=== PATIENT | male | born 1965 | race Caucasian/White ===

== ENCOUNTER 2017-06-26 06:45 | Day surgery (SDC) | payer BC ==
[2017-06-26] MEDS ORDERED: LIDOCAINE 2% MDV (20MG/ML) 20ML VIAL IV ONE (06:46)
[2017-06-26] MEDS ORDERED: PROPOFOL 10 MG/ML VIAL IV ONE (06:46)
[2017-06-26] MEDS ORDERED: MIDAZOLAM HCL 2MG/2ML VIAL IV ONE (06:46)
--- NOTE | 2017-06-29 09:40 | Operative Note ---
DATE OF SURGERY: 06/26/2017 SURGEON: Stephani Moore MD OPERATION: COLONOSCOPY. INDICATIONS: This is a 52-year-old male with history of average risk for colorectal cancer who presented for screening colonoscopy. POSTOPERATIVE DIAGNOSES: 1. Left-sided colonic diverticulosis. 2. Otherwise normal colon. ANESTHESIA: Sedation is per Anesthesia. Pulse oximetry was monitored throughout the procedure to maintain O2 saturation of 90% or greater. Supplemental oxygen was administered via nasal cannula. Cardiac and vital signs were monitored throughout the duration of the procedure, and they were stable. The procedure of colonoscopy and risks and alternatives of the procedure, including the risk of bleeding and perforation, among others, were explained to the patient who voiced understanding and agreed to have the procedure done. Physical examination was performed, and the patient was found stable for sedation. PROCEDURE: The patient was placed in the left lateral position. Sedation was initiated. A digital rectal exam was performed and showed some mild external hemorrhoids with no palpable rectal masses. An Olympus PCF-180AL colonoscope was then inserted into the rectum under direct visualization. It was advanced to the cecum without difficulty. The ileocecal valve and appendiceal orifice were identified and photographed. The colonic mucosa was carefully examined upon introduction of the colonoscope. There were scattered diverticula noted in the sigmoid and descending colon. There were no other lesions noted. The colonoscope was then withdrawn while carefully examining the colonic mucosal surfaces. No other lesions were noted. In the rectum, retroflexion was performed and grade 1 internal hemorrhoids were noted. The colonoscope was then withdrawn and the procedure was terminated. Of note is that the terminal ileal mucosa was intubated and inspected for about 10 cm and it appeared normal. He remained with stable vital signs and was transferred to the recovery room. RECOMMENDATIONS: 1. The patient should be on a high-fiber diet. 2. The patient is to have a repeat colonoscopy for screening in 10 years. Thank you for allowing me to participate in the care of your patient. CC: DO DEMARIO Damian
== END 2017-06-26 09:10 | disposition home or self-care (01) ==
LOC: HOP 06:45
PROVIDERS: ATTEND Internal Medicine Gastroenterology
DX: Z12.11 Encounter for screening for malignant neoplasm of colon (principal); K57.30 Diverticulosis of large intestine without perforation or abscess without bleeding; E78.00 Pure hypercholesterolemia, unspecified; J45.909 Unspecified asthma, uncomplicated
CPT/HCPCS: 00811; G0121

== ENCOUNTER 2019-01-08 10:46 | Emergency (ER) | payer BC ==
[2019-01-08] MEDS ORDERED: 0.9 % SODIUM CHLORIDE 1,000 ML BAG IV ONE ×2 (11:27→12:38)
[2019-01-08] MEDS ORDERED: ONDANSETRON HCL IV 4 MG/2 ML VIAL IVP ONE (11:28)
[2019-01-08 12:00] LABS: ABSOLUTE NEUTROPHIL COUNT 4.84; BASO % 0.2 % (0-6); GRAN % 79.3 % (47-80); HEMOGLOBIN 15.7 gm/dl (14.0-18.0); LYMPH % 9.8 % (16-45); MEAN CELL VOLUME 89.7 fl (81-97); MEAN CORPUSCULAR HGB CONC 33.4 g/dl (32-36); MEAN PLATELET VOLUME 9.8 fl (7.4-10.4); MONO % 10.7 % (0-9); PLATELET COUNT 200 K/uL (130-400); RED BLOOD COUNT 5.24 M/uL (4.40-5.70); RED CELL DISTRIBUTION WIDTH 13.9 % (11.5-14.5); WHITE BLOOD COUNT W/O DIFF 6.1 K/uL (4.2-12.2)
[2019-01-08 12:09] LABS: BLOOD UREA NITROGEN 16 mg/dL (6-20); CREATININE 0.8 mg/dL (0.7-1.2); EST GLOMERULAR FILTRATION RATE > 60 mL/min
[2019-01-08 12:10] LABS: TOTAL PROTEIN 7.7 g/dL (6.6-8.7)
[2019-01-08 12:12] LABS: GLUCOSE,RANDOM 133 mg/dL (74-109)
[2019-01-08 12:14] LABS: ALB/GLOB RATIO 1.3 (1.1-1.8); ALBUMIN 4.3 g/dL (4.0-5.0); ALT/SGPT 52 U/L (<41); AST/SGOT 35 U/L (10.0-50.0)
[2019-01-08 12:15] LABS: ALKALINE PHOSPHATASE 50 U/L (40-129)
[2019-01-08 12:16] LABS: INFLUENZA A NEGATIVE (NEGATIVE); INFLUENZA B NEGATIVE (NEGATIVE)
--- NOTE | 2019-01-08 12:22 | CT SCAN REPORT ---
EXAMINATION: CT Abdomen and Pelvis without IV Contrast EXAM DATE: 01/08/2019 12:01 PM TECHNIQUE: Standard protocol CT imaging of the abdomen and pelvis was performed without intravenous c ontrast. INDICATION: r flank pain COMPARISON: 2010 CT scan. ENCOUNTER: Not applicable CT ABDOMEN AND PELVIS FINDINGS: Lung Bases: Included extent of the lung bases are clear. Hepatobiliary: Mild hepatic steatosis. Normal gallbladder. Pancreas: The pancreas is normal. Spleen: The spleen is not enlarged. Adrenals: The adrenal glands are normal. Kidneys, Ureters, & Bladder: 3 mm obstructing calculus within the proximal right ureter with mild ass ociated upstream hydronephrosis. Multiple additional small nonobstructing renal calculi bilaterally. Normal bladder. Gastrointestinal: The stomach and small bowel are normal with no obstruction or inflammation. Colonic diverticulosis without evidence diverticulitis. Reproductive Organs: Unremarkable Lymphatic System: There is no adenopathy within the abdomen or pelvis. Vasculature: Mild but premature atherosclerosis. Peritoneum: No free fluid, free air, or inflammation Abdominal wall & Musculoskeletal: No suspicious bone lesions. Assessment of the solid organs, soft tissues, and vascular structures is overall limited on noncontra st imaging, IMPRESSION: 1. 3 mm obstructing calculus within the proximal right ureter with mild associated upstream hydroneph rosis. 2. Tiny additional nonobstructing renal calculi bilaterally. 3. Mild hepatic steatosis. 4. Mild but premature atherosclerosis. 5. Colonic diverticulosis. Dictated by: Dominick Amanda MD on 01/08/2019 12:12 PM. .
[2019-01-08] MEDS ORDERED: KETOROLAC 30 MG/ML VIAL IVP ONE (12:37)
[2019-01-08 13:32] LABS: URINE APPEARANCE CLEAR; URINE BILIRUBIN NEGATIVE (NEGATIVE); URINE BLOOD LARGE (NEGATIVE); URINE COLOR YELLOW; URINE GLUCOSE (UA) NEGATIVE (NEGATIVE); URINE KETONE NEGATIVE (NEGATIVE); URINE LEUKOCYTE ESTERASE NEGATIVE (NEGATIVE); URINE NITRITE NEGATIVE (NEGATIVE); URINE PROTEIN NEGATIVE (NEGATIVE)
[2019-01-08 13:39] LABS: URINE BACTERIA NONE SEEN; URINE EPITHELIAL CELLS NONE SEEN (FEW); URINE RBC 21 - 35 (NONE SEEN); URINE WBC NONE SEEN (0-2/hpf)
[2019-01-08] MEDS ORDERED: HYDROMORPHONE HCL 2 MG/ML VIAL IVP ONE (14:02)
--- NOTE | 2019-01-08 14:59 | Emergency Department Record ---
History of Present Illness - General Chief complaint: Flank Pain Stated complaint: VOMITING/FEVER/RT FLANK PAIN Time Seen by Provider: 01/08/19 11:10 Source: Patient Mode of Arrival: Ambulatory Limitations: No limitations - History of Present Illness Initial comments: pt has had n/v for 3 days and then developed r flank pain this am. pt thought he had a fever though he did not take it. no diarrhea MD Complaint: Other Onset/Timin -: Days(s) Location: Right flank Radiation: R flank Severity: Moderate Severity scale (1-10): 8 Quality: Aching, Dull Consistency: Constant Improves with: None Worsens with: None Reports: Nausea/vomiting - Related Data Previous Rx's Medication Instructions Recorded Hydrocodone/Acetaminophen [[place] 1 each PO Q6HR #12 tablet 01/08/19 5-325 Tablet] Ondansetron [Zofran Odt] 4 mg PO Q8H #10 tab.rapdis 01/08/19 Tamsulosin HCl [Flomax] 0.4 mg PO DAILY #7 cap.er.24h 01/08/19 Allergies Allergy/AdvReac Type Severity Reaction Status Date / Time codeine AdvReac Mild NAUSEA Verified 01/08/19 12:39 Travel Screening - Travel/Exposure Within Last 30 Days Have you traveled within the last 30 days?: No - Travel/Exposure Within Last Year Have you traveled outside the [place] in the last year?: Yes Location Detail:: [place] - Additonal Travel Details Have you been exposed to anyone with a communicable illness?: No - Travel Symptoms Symptom Screening: None Review of Systems Reviewed: No additional complaints except as noted below Constitutional: Reports: As per HPI. Denies: Chills, Fever, Malaise, Night sweats, Weakness, Weight change Eyes: Reports: As per HPI. Denies: Eye discharge, Eye pain, Photophobia, Vision change ENT: Reports: As per HPI. Denies: Congestion, Dental pain, Ear pain, Epistaxis, Hearing loss, Throat pain Respiratory: Reports: As per HPI. Denies: Cough, Dyspnea, Hemoptysis, Stridor, Wheezes Cardiovascular: Reports: As per HPI. Denies: Arrhythmia, Chest pain, Dyspnea on exertion, Edema, Murmurs, Orthopnea, Palpitations, Paroxysmal nocturnal dyspnea, Rheumatic Fever, Syncope Endocrine: Reports: As per HPI. Denies: Fatigue, Heat or cold intolerance, Polydipsia, Polyuria Gastrointestinal: Reports: As per HPI, Abdominal pain, Nausea, Vomiting. Denies: Constipation, Diarrhea, Hematemesis, Hematochezia, Melena Genitourinary: Reports: As per HPI. Denies: Dysuria, Frequency, Hematuria, Incontinence, Retention, Testicular pain, Testicular mass, Urgency Musculoskeletal: Reports: As per HPI. Denies: Arthralgia, Back pain, Gout, Joint swelling, Myalgia, Neck pain Skin: Reports: As per HPI. Denies: Bruising, Change in color, Change in hair/nails, Lesions, Pruritus, Rash Neurological: Reports: As per HPI. Denies: Abnormal gait, Confusion, Headache, Numbness, Paresthesias, Seizure, Tingling, Tremors, Vertigo, Weakness Psychiatric: Reports: As per HPI. Denies: Anxiety, Auditory hallucinations, Depression, Homicidal thoughts, Suicidal thoughts, Visual hallucinations Hematological/Lymphatic: Reports: As per HPI. Denies: Anemia, Blood Clots, Easy bleeding, Easy bruising, Swollen glands Past Medical History - SOCIAL HISTORY Smoking Status: Never smoker Alcohol Use: Occasional Drug Use: None - RESPIRATORY Hx Respiratory Disorders: Yes Hx Asthma: Yes (exercise induced) Comment:: takes allergy medications - CARDIOVASCULAR Hx Cardio Disorders: Yes Comment:: takes cholesterol rx-Pravastatin - NEURO Hx Neuro Disorders: No - GI Hx GI Disorders: Yes Hx Reflux: Yes (occ) - Hx Genitourinary Disorders: No - ENDOCRINE Hx Endocrine Disorders: No - MUSCULOSKELETAL Hx Musculoskeletal Disorders: Yes Hx Arthritis: Yes (knees/joints/shoulder) - PSYCH Hx Psych Problems: No - HEMATOLOGY/ONCOLOGY Hx Hematology/Oncology Disorders: No Family Medical History Any Significant Family History?: Yes Hx Cancer: Brother/Sister Hx Diabetes: Brother/Sister Physical Exam - General General Appearance: Alert, Oriented x3, Cooperative, Mild distress - Head Head exam: Normal inspection - Eye Eye exam: Normal appearance, PERRL, EOMI Pupils: Normal accommodation - ENT ENT exam: Normal exam, Mucous membranes moist, Normal external ear exam, Normal orophraynx Ear exam: Normal external inspection. negative: External canal tenderness Nasal Exam: Normal inspection. negative: Discharge, Sinus tenderness Mouth exam: Normal external inspection, Tongue normal Teeth exam: Normal inspection. negative: Dental caries Throat exam: Normal inspection. negative: Tonsillar erythema, Tonsillar exudate - Neck Neck exam: Normal inspection, Full ROM. negative: Tenderness - Respiratory Respiratory exam: Normal lung sounds bilaterally. negative: Respiratory distress - Cardiovascular Cardiovascular Exam: Regular rate, Normal rhythm, Normal heart sounds - GI/Abdominal GI/Abdominal exam: Soft, Normal bowel sounds. negative: Tenderness - Rectal Rectal exam: Deferred - exam: Deferred - Extremities Extremities exam: Normal inspection, Full ROM, Normal capillary refill. n egative: Tenderness - Back Back exam: Reports: CVA tenderness (R), Full ROM. Denies: Muscle spasm, Rash noted, Tenderness - Neurological Neurological exam: Alert, CN II-XII intact, Normal gait, Oriented X3 - Psychiatric Psychiatric exam: Normal affect, Normal mood - Skin Skin exam: Dry, Intact, Normal color, Warm Course Vital Signs 01/08/19 01/08/19 10:59 13:29 Temperature 97.8 F Pulse Rate 92 H Pulse Rate [ 95 H Left] Respiratory 18 20 Rate Blood Pressure 117/83 Blood Pressure 109/64 [Right Arm] Pulse Ox 97 96 Medical Decision Making - Lab Data Result diagrams: 01/08/19 11:38 01/08/19 11:38 Lab Results 01/08/19 01/08/19 01/08/19 Range/Units 11:38 11:38 11:38 WBC 6.1 (4.2-12.2) K/uL RBC 5.24 (4.40-5.70) M/uL Hgb 15.7 (14.0-18.0) gm/dl Hct 47.0 (42.0-52.0) % MCV 89.7 (81-97) fl MCH 30.0 (27-33) pg MCHC 33.4 (32-36) g/dl RDW 13.9 (11.5-14.5) % Plt Count 200 (130-400) K/uL MPV 9.8 (7.4-10.4) fl Gran % 79.3 (47-80) % Lymphocytes % 9.8 L (16-45) % Monocytes % 10.7 H (0-9) % Eosinophils % 0.0 (0-6) % Basophils % 0.2 (0-6) % Absolute Neutrophils 4.84 Sodium 130 L (136-145) mmol/L Potassium 3.9 (3.4-4.5) mmol/L Chloride 94 L (98-107) mmol/L Carbon Dioxide 23.0 (22-29) mmol/L Anion Gap 13.0 (7-16) BUN 16 (6-20) mg/dL Creatinine 0.8 (0.7-1.2) mg/dL Estimated GFR > 60 mL/min Random Glucose 133 H (74-109) mg/dL Calcium 9.4 (8.6-10.0) mg/dL Total Bilirubin 0.50 (0.2-1.0) mg/dL AST 35 (10.0-50.0) U/L ALT 52 H (<41) U/L Alkaline Phosphatase 50 (40-129) U/L Total Protein 7.7 (6.6-8.7) g/dL Albumin 4.3 (4.0-5.0) g/dL Globulin 3.4 (1.4-4.8) gm/dL Albumin/Globulin Ratio 1.3 (1.1-1.8) Urine Color Urine Appearance Urine pH (5.0-8.0) Ur Specific [place] (1.002-1.030) Urine Protein (NEGATIVE) Urine Glucose (UA) (NEGATIVE) Urine Ketones (NEGATIVE) Urine Blood (NEGATIVE) Urine Nitrite (NEGATIVE) Urine Bilirubin (NEGATIVE) Urine Urobilinogen (0.20 - 1.00) E.U./dL Ur Leukocyte Esterase (NEGATIVE) Urine RBC (NONE SEEN) Urine WBC (0-2/hpf) Ur Epithelial Cells (FEW) Urine Bacteria Influenza Type A Ag Negative (NEGATIVE) Influenza Type B Ag Negative (NEGATIVE) 01/08/19 Range/Units 13:25 WBC (4.2-12.2) K/uL RBC (4.40-5.70) M/uL Hgb (14.0-18.0) gm/dl Hct (42.0-52.0) % MCV (81-97) fl MCH (27-33) pg MCHC (32-36) g/dl RDW (11.5-14.5) % Plt Count (130-400) K/uL MPV (7.4-10.4) fl Gran % (47-80) % Lymphocytes % (16-45) % Monocytes % (0-9) % Eosinophils % (0-6) % Basophils % (0-6) % Absolute Neutrophils Sodium (136-145) mmol/L Potassium (3.4-4.5) mmol/L Chloride (98-107) mmol/L Carbon Dioxide (22-29) mmol/L Anion Gap (7-16) BUN (6-20) mg/dL Creatinine (0.7-1.2) mg/dL Estimated GFR mL/min Random Glucose (74-109) mg/dL Calcium (8.6-10.0) mg/dL Total Bilirubin (0.2-1.0) mg/dL AST (10.0-50.0) U/L ALT (<41) U/L Alkaline Phosphatase (40-129) U/L Total Protein (6.6-8.7) g/dL Albumin (4.0-5.0) g/dL Globulin (1.4-4.8) gm/dL Albumin/Globulin Ratio (1.1-1.8) Urine Color Yellow Urine Appearance Clear Urine pH 6.0 (5.0-8.0) Ur Specific [place] 1.015 (1.002-1.030) Urine Protein Negative (NEGATIVE) Urine Glucose (UA) Negative (NEGATIVE) Urine Ketones Negative (NEGATIVE) Urine Blood Large H (NEGATIVE) Urine Nitrite Negative (NEGATIVE) Urine Bilirubin Negative (NEGATIVE) Urine Urobilinogen 1.0 (0.20 - 1.00) E.U./dL Ur Leukocyte Esterase Negative (NEGATIVE) Urine RBC 21 - 35 (NONE SEEN) Urine WBC None seen (0-2/hpf) Ur Epithelial Cells None seen (FEW) Urine Bacteria None seen Influenza Type A Ag (NEGATIVE) Influenza Type B Ag (NEGATIVE) Disposition Disposition: Discharge Clinical Impression: Renal lithiasis, Hydroureter Disposition: Home, Self-Care Condition: (1) Good Instructions: Kidney Stones (ED), How to Strain Your Urine (ED) Additional Instructions: follow up with dr meza. return sooner if worse. push fluids Prescriptions: Hydrocodone/Acetaminophen [[place] 5-325 Tablet] 1 each PO Q6HR #12 tablet Tamsulosin HCl [Flomax] 0.4 mg PO DAILY #7 cap.er.24h Ondansetron [Zofran Odt] 4 mg PO Q8H #10 tab.rapdis Quality - Quality Measures Quality Measures: N/A - Blood Pressure Screening Does Patient Have Any of the Following: No Blood Pressure Classification: Pre-Hypertensive BP Reading Systolic Measurement: 117 Diastolic Measurement: 83 Screening for High Blood Pressure: < Pre-Hypertensive BP, F/U Documented > [G8950] Pre-Hypertensive Follow-up Interventions: Follow-up with rescreen every year.
== END 2019-01-08 15:38 | disposition home or self-care (01) ==
LOC: ER 10:46
DX: N13.2 Hydronephrosis with renal and ureteral calculous obstruction (principal); R11.2 Nausea with vomiting, unspecified
CPT/HCPCS: 99284 ×2; 96374; 96375; 96361; 85025; 80053; 81001; 87400; 74176; J1885; J2405; J1170; J7030

== ENCOUNTER 2019-01-10 17:34 | Emergency (ER) | payer BC ==
[2019-01-10] MEDS ORDERED: HYDROMORPHONE HCL 2 MG/ML VIAL IVP ONE (17:51)
[2019-01-10] MEDS ORDERED: ONDANSETRON HCL IV 4 MG/2 ML VIAL IVP ONE (17:51)
[2019-01-10 18:04] LABS: ABSOLUTE NEUTROPHIL COUNT 2.99; BASO % 0.5 % (0-6); EOS % 0.2 % (0-6); GRAN % 71.8 % (47-80); HEMATOCRIT 44.7 % (42.0-52.0); HEMOGLOBIN 15.1 gm/dl (14.0-18.0); LYMPH % 14.6 % (16-45); MEAN CELL VOLUME 88.9 fl (81-97); MEAN CORPUSCULAR HGB CONC 33.8 g/dl (32-36); MEAN PLATELET VOLUME 9.8 fl (7.4-10.4); MONO % 12.9 % (0-9); PLATELET COUNT 169 K/uL (130-400); RED BLOOD COUNT 5.03 M/uL (4.40-5.70); RED CELL DISTRIBUTION WIDTH 13.9 % (11.5-14.5); WHITE BLOOD COUNT W/O DIFF 4.2 K/uL (4.2-12.2)
--- NOTE | 2019-01-10 18:08 | Emergency Department Record ---
History of Present Illness - General Chief Complaint: Headache Migraine Stated Complaint: HEADACHE Time Seen by Provider: 01/10/19 17:35 Source: Patient, Family Mode of Arrival: Ambulatory Limitations: No limitations - History of Present Illness Initial Comments: 53 yo male presents with a headache. He states the onset was very mild and gradual last Thursday. He noticed he was not feeling well while driving back from [employer]. on Thursday. Later that night he developed chills, body aches, nausea and vomiting. Those symptoms lasted through Thursday. He states the onset was very gradual peaking later in the day on . He was seen in the ED on Thursday after developing flank pain. He was diagnosed with a 3mm distal ureteral stone. The flank pain has resolved. No fevers documented over 5 days. No hematuria. No abdominal pain. He states the headache that developed last week has continued. It is both temples and wraps around. He states the top of his head feels hot at times and sensitive to touch. The intensity comes and goes. He feels it behind the eyes at times. No rash. No vision changes. No confusion. No swollen glands. No pain with neck movement. He saw a PA in his PCP's today and was instructed to present to the ED. He reports no signs or symptoms consistent with the kidney stone pain he was having on Thursday. The headache was not sudden or maximal at onset. He states he did notice on Thursday the headache sudden increased when he got IV fluids and medicine then subsided significantly prior to leaving. MD Complaint: Headache Onset/Timin -: Days(s) Onset Description: Gradual Location: Frontal, Retro-orbital, Temporal Severity: Moderate Severity scale (1-10): 7 Quality: Aching Consistency: Constant Improves With: Nothing Worsens With: None Context: Other Associated Symptoms: Nausea Treatments Prior to Arrival: Ibuprofen - Related Data Previous Rx's Medication Instructions Recorded Hydrocodone/Acetaminophen [[place] 1 each PO Q6HR #12 tablet 01/08/19 5-325 Tablet] Ondansetron [Zofran Odt] 4 mg PO Q8H #10 tab.rapdis 01/08/19 Tamsulosin HCl [Flomax] 0.4 mg PO DAILY #7 cap.er.24h 01/08/19 Allergies Allergy/AdvReac Type Severity Reaction Status Date / Time codeine AdvReac Mild NAUSEA Verified 01/10/19 17:39 Travel Screening - Travel/Exposure Within Last 30 Days Have you traveled within the last 30 days?: No Review of Systems Constitutional: Reports: Malaise. Denies: Chills, Fever Eyes: Denies: Eye discharge, Eye pain, Photophobia, Vision change ENT: Denies: Congestion, Ear pain, Throat pain Respiratory: Denies: Cough, Dyspnea, Stridor, Wheezes Cardiovascular: Denies: Chest pain, Edema, Palpitations, Syncope Endocrine: Denies: Fatigue, Polydipsia, Polyuria Gastrointestinal: Reports: As per HPI, Nausea, Vomiting. Denies: Abdominal pain, Constipation, Diarrhea, Hematemesis, Hematochezia, Melena Genitourinary: Denies: Dysuria, Frequency, Hematuria Musculoskeletal: Reports: Back pain (Flank pain on Thursday). Denies: Arthra lgia, Joint swelling, Myalgia, Neck pain Skin: Denies: Bruising, Change in color, Rash Neurological: Reports: Headache. Denies: Abnormal gait, Confusion, Numbness, Paresthesias, Seizure, Tingling, Tremors, Vertigo, Weakness Psychiatric: Denies: Anxiety Hematological/Lymphatic: Denies: Easy bleeding, Easy bruising, Swollen glands Past Medical History - SOCIAL HISTORY Smoking Status: Never smoker Alcohol Use: None Drug Use: None - RESPIRATORY Hx Respiratory Disorders: Yes Hx Asthma: Yes (exercise induced) Comment:: takes allergy medications - CARDIOVASCULAR Hx Cardio Disorders: Yes Comment:: takes cholesterol rx-Pravastatin - NEURO Hx Neuro Disorders: No - GI Hx GI Disorders: Yes Hx Reflux: Yes (occ) - Hx Genitourinary Disorders: No - ENDOCRINE Hx Endocrine Disorders: No - MUSCULOSKELETAL Hx Musculoskeletal Disorders: Yes Hx Arthritis: Yes (knees/joints/shoulder) - PSYCH Hx Psych Problems: No - HEMATOLOGY/ONCOLOGY Hx Hematology/Oncology Disorders: No Family Medical History Any Significant Family History?: Yes Hx Cancer: Brother/Sister Hx Diabetes: Brother/Sister Physical Exam - General General Appearance: Alert, Oriented x3, Cooperative, No acute distress, Other (Well appearing, no ill appearing) Limitations: No limitations - Head Head exam: Atraumatic, Normocephalic, Normal inspection Head exam detail: Other (No tenderness of the scalp). negative: General tenderness, Tenderness of temporal artery - Eye Eye exam: Normal appearance, PERRL, EOMI. negative: Conjunctival injection, Nystagmus, Periorbital swelling, Periorbital tenderness - ENT ENT exam: Normal exam, Mucous membranes moist, Normal orophraynx, TM's normal bilaterally. negative: Mucous membranes dry Ear exam: Normal external inspection Nasal Exam: Normal inspection Mouth exam: Normal external inspection Teeth exam: Normal inspection Throat exam: Normal inspection - Neck Neck exam: Normal inspection, Full ROM, Other (Full ROM, very supple, full ROM). negative: Lymphadenopathy, Meningismus, Tenderness, Thyromegaly - Respiratory Respiratory exam: Normal lung sounds bilaterally. negative: Respiratory distress, Rhonchi, Stridor, Wheezes - Cardiovascular Cardiovascular Exam: Regular rate, Normal rhythm, Normal heart sounds Peripheral Pulses: 2+: Radial (R), Radial (L) - GI/Abdominal GI/Abdominal exam: Soft. negative: Distended, Guarding, Rebound, Rigid, Tenderness - Rectal Rectal exam: Deferred - exam: Deferred - Extremities Extremities exam: Normal inspection, Full ROM. negative: Pedal edema, Tenderness - Back Back exam: Reports: Full ROM. Denies: CVA tenderness (R), CVA tenderness (L), Tenderness, Vertebral tenderness - Neurological Neurological exam: Alert, CN II-XII intact, Normal gait, Oriented X3, Reflexes normal, Other (Normal FTN, No PND, no ataxia). negative: Abnormal gait, Altered, Motor sensory deficit - Psychiatric Psychiatric exam: Normal affect, Normal mood. negative: Agitated, Anxious, Depressed - Skin Skin exam: Dry, Intact, Normal color, Warm Course Vital Signs 01/10/19 17:36 Temperature 97.6 F Pulse Rate 101 H Respiratory 18 Rate Blood Pressure 122/84 Pulse Ox 99 - Reevaluation(s) Reevaluation #1: 01/10/19 18:[address] is negative The CBC is normal The CMP is normal The CRP is 8.5 01/10/19 18:52 ESR is 27 01/10/19 19:09 The patient still has the headache and sensitive scalp. His inflammatory markers are mildly elevated. Consider arteritis. I recommend transfer to [facility] for further evaluation. I SW Dr Joe. He agrees with accepting transfer and evaluation for additional work up with warranted. We discussed Decadron IVP. Dr Joe in agreement. The symptoms are not typical of SAH (not maximal at onset, very gradual), Not typical of infection (no fever documented in 5 days, no leukocytosis on this or prior ED visit, no nuchal rigidity, no confusion to suggest encephalitis). I do not think emergent LP indicated at this time to rule out SAH or meningitis given the previously stated. I did discuss this may be needed at some point but the patient is not in agreement with LP either at this time. Medical Decision Making - Lab Data Result diagrams: 01/10/19 18:00 01/10/19 18:00 Disposition Disposition: Transfer Clinical Impression: Headache Qualifiers: Headache type: unspecified Headache chronicity pattern: unspecified pattern Intractability: intractable Qualified Code(s): R51 - Headache Transfer To: [facility] Reason For Transfer: Intractable headache Accepting Physician: Heath Time Discussed w/Accepting Physician: 19:02 Condition: (2) Stable Forms: Patient Portal Access Time of Disposition: 19:02 Quality - Quality Measures Quality Measures: N/A - Blood Pressure Screening Does Patient Have Any of the Following: No Blood Pressure Classification: Pre-Hypertensive BP Reading Systolic Measurement: 122 Diastolic Measurement: 84 Screening for High Blood Pressure: < Pre-Hypertensive BP, F/U Documented > [G8950] Pre-Hypertensive Follow-up Interventions: Referral to alternative/primary care provider.
[2019-01-10 18:13] LABS: BLOOD UREA NITROGEN 9 mg/dL (6-20); CREATININE 0.8 mg/dL (0.7-1.2); EST GLOMERULAR FILTRATION RATE > 60 mL/min; TOTAL PROTEIN 7.5 g/dL (6.6-8.7)
[2019-01-10 18:15] LABS: GLUCOSE,RANDOM 111 mg/dL (74-109)
[2019-01-10 18:18] LABS: ALB/GLOB RATIO 1.2 (1.1-1.8); ALBUMIN 4.1 g/dL (4.0-5.0); ALKALINE PHOSPHATASE 48 U/L (40-129); ALT/SGPT 48 U/L (<41); AST/SGOT 30 U/L (10.0-50.0)
--- NOTE | 2019-01-10 18:32 | CT SCAN REPORT ---
EXAMINATION: CT Head without IV Contrast EXAM DATE: 01/10/2019 6:13 PM TECHNIQUE: Standard protocol CT images of the head were obtained without intravenous contrast. [place]ina[place] l and sagittal reconstructed images were created. INDICATION: headache 5 days COMPARISON: None HAND DOMINANCE: Unknown. ENCOUNTER: Not applicable FINDINGS: 1. There is no intracranial mass, midline shift, extraaxial fluid collection or hemorrhage. 2. The ventricles, sulci and cisterns are normal. 3. There are no suspicious area of altered attenuation. 4. There is no fracture. 5. The visualized aspects of the orbits, paranasal sinuses, and mastoid air cells are normal. IMPRESSION: Negative noncontrast CT scan of the brain Dictated by: Roderick Martínez MD on 01/10/2019 6:29 PM. .
[2019-01-10] MEDS ORDERED: DEXAMETHASONE SOD PHOSPHATE 10MG/ML VIAL IVP ONE (19:09)
== END 2019-01-10 21:32 | disposition short-term general hospital (02) ==
LOC: ER 17:34
DX: R51 Headache (principal); R70.0 Elevated erythrocyte sedimentation rate; R11.2 Nausea with vomiting, unspecified; Z87.442 Personal history of urinary calculi
CPT/HCPCS: 99285 ×2; 96374; 96375; 85025; 85651; 86140; 80053; 70450; J2405; J1170; J1100